=== PATIENT | male | born 1980 | race Caucasian/White ===

== ENCOUNTER 2018-05-10 22:22 | Emergency (ER) | payer SELFPAY ==
[~2018-05-10] VITALS: Ht 182.9 cm; Wt 92.9 kg
[2018-05-11] MEDS ORDERED: TETANUS, DIPHTHERIA, PERTUSSIS VAC/PF 0.5ML (>7YR OLD) IM ONE (00:30)
[2018-05-11 02:20] VITALS: BP 133/86
== END 2018-05-11 02:22 | disposition home or self-care (01) ==
LOC: ER 22:22
DX: S61.452A Open bite of left hand, initial encounter (principal); J45.909 Unspecified asthma, uncomplicated; W54.0XXA Bitten by dog, initial encounter; Y93.01 Activity, walking, marching and hiking; Y92.89 Other specified places as the place of occurrence of the external cause
CPT/HCPCS: 73130; 90471; 90715; 99284

== ENCOUNTER 2018-09-27 19:15 | Emergency (ER) | payer SELFPAY ==
[~2018-09-27] VITALS: Ht 177.8 cm; Wt 86.0 kg
[2018-09-27] MEDS ORDERED: HALOPERIDOL LACTATE 5MG/ML VIAL IM STA (20:50)
[2018-09-27] MEDS ORDERED: SODIUM CHLORIDE 0.9% 1,000 ML IV ONE (20:50)
[2018-09-27] MEDS ORDERED: LORAZEPAM 2MG/ML CPJ IV STA (20:50)
[2018-09-27] MEDS ORDERED: LIDOCAINE 1%/EPI 1:100,000 10 ML VIAL IJ ONE (21:00)
[2018-09-27] MEDS ORDERED: TETANUS, DIPHTHERIA, PERTUSSIS VAC/PF 0.5ML (>7YR OLD) IM ONE (21:00)
[2018-09-27 22:09] LABS: BASOPHILS % 0.3 % (0.0-2.0); EOSINOPHILS % 0.9 % (0.0-5.0); HEMATOCRIT. 42.1 % (42.0-52.0); HEMOGLOBIN. 14.2 g/dL (14.0-18.0); LYMPHOCYTES % 14.1 % (20.0-50.0); MEAN CORPUSCULAR HEMOGLOBIN 30.8 pg (28.0-32.0); MEAN CORPUSCULAR VOLUME 91.4 fL (80.0-94.0); MEAN PLATELET VOLUME 8.6 fl (7.4-10.4); NEUTROPHILS % 75.7 % (40.0-76.0); PLATELET 200 x1000/uL (130-400); RED BLOOD CELL COUNT 4.61 mill/uL (4.7-6.1); RED CELL DISTRIBUTION WIDTH 14.2 % (11.6-14.6)
[2018-09-27 22:11] LABS: CHLORIDE 108 mEq/L (98-107)
[2018-09-27 22:15] LABS: ETHANOL BLOOD < 10 mg/dL
[2018-09-27 22:42] LABS: *AMPHETAMINES SCREEN URINE PRESUMTIVE POSITIVE (NEGATIVE); *BARBITURATES SCREEN URINE NEGATIVE (NEGATIVE); *BENZODIAZEPINES SCREEN URINE NEGATIVE (NEGATIVE); *COCAINE SCREEN URINE NEGATIVE (NEGATIVE)
[2018-09-27 22:43] LABS: CANNABINOID URINE SCREEN PRESUMTIVE POSITIVE (NEGATIVE); METHADONE URINE SCREEN NEGATIVE (NEGATIVE); OPIATES URINE SCREEN NEGATIVE (NEGATIVE); PHENCYCLIDINE URINE SCREEN NEGATIVE (NEGATIVE)
[2018-09-28] MEDS ORDERED: CEFAZOLIN 1000MG PREMIX 50 ML IV NR
[2018-09-28 06:40] VITALS: BP 135/96
== END 2018-09-28 06:52 | disposition short-term general hospital (02) ==
LOC: ER 19:15
DX: S01.01XA Laceration without foreign body of scalp, initial encounter (principal); X58.XXXA Exposure to other specified factors, initial encounter; Y93.9 Activity, unspecified; Y92.9 Unspecified place or not applicable; Z78.1 Physical restraint status; S00.83XA Contusion of other part of head, initial encounter; F15.10 Other stimulant abuse, uncomplicated; R45.1 Restlessness and agitation; F17.210 Nicotine dependence, cigarettes, uncomplicated; Z23 Encounter for immunization
CPT/HCPCS: 12002; 36415; 70450; 70486; 71045; 80053; 80305; 85025; 90471; 90715; 96365; 96372; 96375; 99284; G0482; J0690; J1630; J2060; J3490; J7030